=== PATIENT | female | born 1980 ===

== ENCOUNTER 2018-08-16 10:10 | Emergency (ER) | payer BC ==
[2018-08-16] MEDS ORDERED: DiphenhydrAMINE 50 mg/ml Inj IVP STA (10:37)
--- NOTE | 2018-08-16 10:51 | C.PDOC ---
History Of Present Illness 37 y/o female comes in to ED complaining of headache since 3 days ago, with pain to the right side of her head. Patient denies fever, chills, nausea, vomiting, or other complaints. Time Seen by Provider: 08/16/18 10:33 Chief Complaint (Nursing): Headache History Per: Patient History/Exam Limitations: no limitations Onset/Duration Of Symptoms: Days Current Symptoms Are (Timing): Still Present Past Medical History Reviewed: Historical Data, Nursing Documentation, Vital Signs Vital Signs: Last Vital Signs Temp 98.4 F 08/16/18 10:19 Pulse 64 08/16/18 10:19 Resp 20 08/16/18 10:19 BP 180/90 H 08/16/18 10:19 Pulse Ox 99 08/16/18 10:19 Family History: States: No Known Family Hx - Social History Hx Alcohol Use: No Hx Substance Use: No - Immunization History Hx Tetanus Toxoid Vaccination: No Hx Influenza Vaccination: No Hx Pneumococcal Vaccination: No Review Of Systems Except As Marked, All Systems Reviewed And Found Negative. Constitutional: Negative for: Fever, Chills Cardiovascular: Negative for: Chest Pain Respiratory: Negative for: Shortness of Breath Gastrointestinal: Negative for: Nausea, Vomiting Skin: Negative for: Rash Neurological: Positive for: Headache Physical Exam - Physical Exam Appears: Non-toxic, No Acute Distress Skin: Warm, Dry Head: Tenderness (right temporal tenderness) Eye(s): bilateral: Normal Inspection Oral Mucosa: Moist Neck: Supple Cardiovascular: Rhythm Regular, No Murmur Respiratory: Normal Breath Sounds, No Rales, No Rhonchi, No Wheezing Gastrointestinal/Abdominal: Soft, No Tenderness Extremity: Bilateral: Atraumatic, Normal Color And Temperature, Normal ROM Neurological/Psych: Oriented x3, Normal Speech ED Course And Treatment - Laboratory Results Result Diagrams: 08/16/18 11:00 08/16/18 11:47 O2 Sat by Pulse Oximetry: 99 (RA) Pulse Ox Interpretation: Normal Medical Decision Making Medical Decision Making: thorn[place], mild temporal pain - will eval for temproal arteritis, intracrnail metabolic etiology no mengmus. pt well appearing innad. Plan: --Labs --UA --Benadryl 25 mg IV --Reglan 10 mg IV --Tylenol PO labs imaging esr neg. all symptoms resolved. asking for dc. hx and discharge obtained via tranlator edilberto rn Disposition - Disposition Referrals: [facility] [Outside] [facility] [Outside] Ronan Perrin MD [Staff Provider] - Disposition: HOME/ ROUTINE Disposition Time: 13:00 Condition: GOOD Additional Instructions: return to er with worsening symptoms or concerns. Instructions: Headache, Adult Forms: [facility] (Bel[place]ian) - Clinical Impression Clinical Impression: Headache - Scribe Statement The provider has reviewed the documentation as recorded by the Sungibchapo Nick Provider Attestation: All medical record entries made by the Sungibchapo were at my direction and personally dictated by me. I have reviewed the chart and agree that the record accurately reflects my personal performance of the history, physical exam, medical decision making, and the department course for this patient. I have also personally directed, reviewed, and agree with the discharge instructions and disposition.
[2018-08-16] MEDS ORDERED: DiphenhydrAMINE 50 mg/ml Inj ONE (10:55)
[2018-08-16 11:04] LABS: BASO # 0.1 K/uL (0.0-0.2); BASO % 0.9 % (0.0-2.0); EOS # 0.1 K/uL (0.0-0.7); EOS % 2.3 % (0.0-4.0); HEMOGLOBIN 14.1 g/dL (11.0-16.0); LYMPH # 3.4 K/uL (1.0-4.3); LYMPH % 61.7 % (20.0-40.0); MEAN CELL VOLUME 86.9 fL (81.0-99.0); MEAN CORPUSCULAR HEMOGLOBIN 29.2 pg (27.0-31.0); MEAN CORPUSCULAR HGB CONC 33.6 g/dL (33.0-37.0); MEAN PLATELET VOLUME 8.8 fL (7.2-11.7); MONO # 0.5 K/uL (0.0-0.8); MONO % 8.5 % (0.0-10.0); NEUT # 1.5 K/uL (1.8-7.0); NEUT % 26.6 % (50.0-75.0); NRBC % 0.2 % (0.0-2.0); RBC 4.84 Mil/uL (3.80-5.20); RED CELL DISTRIBUTION WIDTH 12.8 % (11.5-14.5); WHITE BLOOD COUNT 5.5 K/uL (4.8-10.8)
[2018-08-16 11:10] LABS: HCG,QUALITATIVE URINE NEGATIVE (NEGATIVE)
[2018-08-16 11:13] LABS: INR 1.2; PROTHROMBIN TIME 12.7 SECONDS (9.7-12.2)
[2018-08-16 11:18] LABS: SQUAMOUS EPITHIAL 1 /hpf (0-5); URINE BILIRUBIN NEGATIVE (NEGATIVE); URINE CLARITY Clear (Clear); URINE COLOR Yellow (YELLOW); URINE GLUCOSE (UA) NORMAL (Normal); URINE LEUKOCYTE ESTERASE NEG Leu/uL (Negative); URINE PROTEIN NEGATIVE (NEGATIVE); URINE UROBILINOGEN NORMAL mg/dL (0.2-1.0)
[2018-08-16 11:43] LABS: URINE BLOOD 1+ (NEGATIVE)
--- NOTE | 2018-08-16 12:13 | CT ---
Date of service: 08/16/2018 PROCEDURE: CT HEAD WITHOUT CONTRAST. HISTORY: [place] COMPARISON: None available. TECHNIQUE: Axial computed tomography images were obtained through the head/brain without intravenous contrast. Radiation dose: Total exam DLP = 1035.35 mGy-cm. This CT exam was performed using one or more of the following dose reduction techniques: Automated exposure control, adjustment of the mA and/or kV according to patient size, and/or use of iterative reconstruction technique. FINDINGS: HEMORRHAGE: No intracranial hemorrhage. BRAIN: No mass effect or edema. Intracranial atherosclerotic calcifications. The juarez-white matter differentiation appears intact. VENTRICLES: No hydrocephalus. CALVARIUM: Unremarkable. PARANASAL SINUSES: Unremarkable as visualized. No significant inflammatory changes. MASTOID AIR CELLS: Unremarkable as visualized. No inflammatory changes. OTHER FINDINGS: None. IMPRESSION: No acute intracranial pathology identified.
[2018-08-16 12:15] LABS: ALB/GLOB RATIO 1.6 (1.0-2.1); ALBUMIN 4.3 g/dL (3.5-5.0); ALT/SGPT 15 U/L (9-52); AST/SGOT 27 U/L (14-36); BLOOD UREA NITROGEN 12 mg/dL (7-17); CALCIUM 8.7 mg/dl (8.6-10.4); GFR NON-AFRICAN AMERICAN > 60
[2018-08-16 13:23] VITALS: BP 137/84; PULSE 64; RESP 18; TEMP 98.3
[2018-08-16 14:30] VITALS: O2SAT 99
== END 2018-08-16 13:23 | disposition home or self-care (01) ==
LOC: C.ER 10:10
DX: R51 Headache (principal)
CPT/HCPCS: 70450; 80053; 81001; 84703; 85025; 85610; 85651; 85730; 96374; 96375; 99285; J1200; J2765